=== PATIENT | male | born 1985 | race Hispanic/Latino ===

== ENCOUNTER → 2024-01-21 | Outpatient (CLI) | payer OTHER, MEDICARE ==
--- NOTE | 2024-01-21 15:31 | HMCIMG ---
FEMUR 2 VW LEFT HISTORY: Fine mass COMPARISON: None TECHNIQUE: 5 images of left femur were obtained. FINDINGS: Evaluation of soft tissue mass is limited with radiographs. 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 There is no acute displaced fracture or dislocation. Degenerative changes are seen. IMPRESSION: 1. Findings as described above.
--- NOTE | 2024-01-21 15:33 | HMCIMG ---
KNEE 3VWS RT HISTORY: Right patellar subluxation COMPARISON: None TECHNIQUE: 2 images of right knee were obtained. FINDINGS: There is no acute displaced fracture or dislocation. Minimal degenerative changes are seen. IMPRESSION: 1. Findings as described above.
--- NOTE | 2024-01-21 15:33 | HMCIMG ---
KNEE 3VWS LT REASON: THIGH MASS. COMPARISON: None TECHNIQUE: 2 images of left knee were obtained. FINDINGS: There is exostosis/osteochondroma at the distal portion of the left femur dorsally. No acute displaced fracture or dislocation is seen. IMPRESSION: Findings as described above.
== END | disposition home or self-care (01) ==
LOC: RAH 14:30
PROVIDERS: ATTEND Internal Medicine
DX: S83.001A Unspecified subluxation of right patella, initial encounter (principal); R22.40 Localized swelling, mass and lump, unspecified lower limb; M89.9 Disorder of bone, unspecified; X58.XXXA Exposure to other specified factors, initial encounter; Y93.89 Activity, other specified; Y92.89 Other specified places as the place of occurrence of the external cause; Y99.8 Other external cause status
CPT/HCPCS: 73552; 73562